=== PATIENT | female | born 1935 | race Caucasian/White ===

== ENCOUNTER → 2016-10-30 | Outpatient (CLI) | payer OTHER, MEDICARE ==
[~2016-10-30] VITALS: Ht 162.6 cm; Wt 71.7 kg
[~2016-10-30] MED LIST: ALPRAZOLAM 0.50.5 M1 PO; AMBIEN 5 MG TABL5 M1 PO; B-121000 MCG PO; BIOTIN300 MCG PO; C-1000 WITH R1000 MG PO; CALCIUM CITRAT1 EA14; COLACE 100 MG100 MG PO; COZAAR 25 MG TA25 M1 PO; COZAAR 50 MG TA50 M2 PO; CRANBERRY200 MG PO; CYMBALTA60 MG PO; DIPHENHIST25 M2 PO; FERRO-TIME325 MG PO; FERROUS PO; FISH OIL 1,0001 EAC5 PO; FISH OIL 1,2001 EAC4 PO; FLONASE16 GM NASAL; FLORASTOR250 MG PO; FOSAMAX 70 MG T70 M1 PO; HAIR VITAMIN OR; HAIR, SKIN & N1 EAC1 PO; HYDROCODONE-AP1 EAC6 PO; IMMODIUM OR; IRON 45 MG PO; IRON OR; IRON325 PO; KLOR-CON 1010 MEQ PO; LEVAQUIN 500 M500 M2 PO; LEVOTHROID100 MC1 PO; LEVOTHYROXIN0.075 MG PO; LOPERAMIDE 2 MG2 M1 PO; LYRICA 50 MG50 MG PO; MACROBID 100 M100 M1 PO; MAGOX 400400 MG PO; MILK OF MA2400 MG/10 PO; MIRALAX17 GM PO; MOBIC15 MG PO; MOBIC7.5 MG PO; MORPHINE 110 MG/1 ML PO; MORPHINE S10 MG/5 M2 PO; MORPHINE SULFAT15 M3 PO; MS CONTIN15 MG PO; NORCO 5-325 TA1 EACH PO; PREDNISONE 10 M10 M1 OR; PRILOSEC20 MG PO; TYLENOL325 MG PO; VITAMIN B-12500 MCG OR; VITAMIN B-6200 M1 OR; VITAMIN B-650 M1 PO; VITAMIN C1000 M1 PO; VITAMIN D1000 UNI1 OR; VITAMIN D2000 UNIT PO; VITAMIN D35000 UNI1 PO; VITAMIN D5000 UNIT PO; VITAMINC500 PO; VITCB500GO OR; ZANAFLEX4 MG PO; ZINC CHELATE100 MG OR; ZINC30 M1 PO; ZOFRAN ODT4 MG PO; ZYRTEC 10 MG TA10 MG PO; ZYRTEC10 M5 PO
--- NOTE | ~2016-10-30 | HPC ---
[facility] [place] [address] PAIN MANAGEMENT CONSULTATION Name: TERESA BIRCH Room #: REG [facility] Joshua.#: [id number] Admission: 10/30/16 Attend Phys: Erick Pichardo MD Discharge: Date of : 35 Report #: [id number] THIS REPORT FOR: //name// CC: Mehnaz Pichardo DATE OF REGISTRATION: 10/30/2016. Followup visit for bilateral osteoarthritis of the knee. HISTORY OF PRESENT ILLNESS: The patient is here today for her knee injections. She has had good response to these injections in the past. She has a small effusion on the left. She complains also of severe pain on the right with weightbearing. She is hopeful that we can inject both knees today. Pain radiates down into the lower leg. She has some small varicosities below the knee bilaterally and some small bruising, these were concerning to her. We discussed the etiology. I did not believe the are serious at this time. She has both Lyrica for pain as well as meloxicam. Meloxicam seems to be more helpful and she would like a prescription, we have discussed side effects of these medications on multiple occasions. We discussed GI, renal and cardiac side effects of nonsteroidal anti-inflammatory drug, meloxicam. I reviewed all of her medications, they are listed on the electronic medical record. PHYSICAL EXAMINATION: GENERAL: She is pleasant but anxious. This is her typical presentation to clinic. VITAL SIGNS: Her blood pressure is 137/84, heart rate 85. BMI is 27. EXTREMITIES: Examination of the knees reveals mild crepitus on the right without effusion. The left knee is swollen and there is some small effusion palpable. She has pain with weightbearing bilaterally. I have discussed the findings below the knee is varicosities superficial. IMPRESSION: Osteoarthritis, bilateral knee. Left is worse in the right and she has effusion there. PLAN: She has responded nicely to injections in the past with pain relief. She would like to do injections in lieu of pursuing a more aggressive approach including surgery. RECOMMENDATIONS: Potential benefits and risks were reviewed with the patient and she is anxious to proceed. I told her that I would perform an joint aspiration some of effusion fluid before injecting the left knee as this has been shown to be more helpful for our patients previously. [address] [address] PAIN MANAGEMENT CONSULTATION Name: REBECCA BIRCHJORIE Emily Room #: REG [facility] June.#: [id number] Admission: 10/30/16 Attend Phys: Erick Pichardo MD Discharge: Date of : 35 Report #: [id number] PROCEDURE IN DETAIL: We began first on the right. Skin was prepped with ChloraPrep and a 25-gauge needle gently advanced into the joint space. AP and lateral views. Using a subpatellar approach showed nice placement of the needle. I did not use Omnipaque for this injection. After negative aspiration, I injected the knee with 5 mL of 0.5% bupivacaine and 40 mg triamcinolone. Needle was removed. Skin was then prepped on the left. We identified joint space with a small 25-gauge needle and then used an 18 gauge needle to gently use a subpatellar approach to advance into the joint space. I was there confirming by aspiration of 1.5 mL of joint fluid aspirate. No further aspiration was obtained. The fluid was not bloody at all, it was straw colored. This was set aside and then I injected 5 mL of 0.5% bupivacaine mixed with 40 mg of triamcinolone into the left knee joint. She tolerated procedures well. There were no complications. She is observed for a short time and discharge from clinic and followup as needed. Prescription for meloxicam was provided 7.5 mg 1 to 2 tablets daily for severe arthritis. Again, nonsteroidal anti-inflammatory drugs side effects discussed. By: [id number] Erick Pichardo MD /nt
[2016-10-30 09:56] VITALS: BP 137/84
== END ==
LOC: PAIN 06:44
DX: M17.0 Bilateral primary osteoarthritis of knee (principal)

== ENCOUNTER → 2017-02-03 | Outpatient (CLI) | payer OTHER, MEDICARE | LOC: SLEEPLAB 15:40 | DX: G47.33 Obstructive sleep apnea (adult) (pediatric) (principal) ==

== ENCOUNTER 2017-03-26 13:43 | Emergency (ER) | payer OTHER, MEDICARE ==
[~2017-03-26] VITALS: Ht 165.1 cm; Wt 65.8 kg
[2017-03-26] MEDS ORDERED: PREDNISONE 20 M20 MG PO (15:41)
== END 2017-03-26 15:41 | disposition home or self-care (01) ==
LOC: ER 13:43
DX: M25.461 Effusion, right knee (principal); M54.31 Sciatica, right side; M19.90 Unspecified osteoarthritis, unspecified site; E89.0 Postprocedural hypothyroidism; Z90.710 Acquired absence of both cervix and uterus; Z98.890 Other specified postprocedural states; Z87.11 Personal history of peptic ulcer disease; Z88.1 Allergy status to other antibiotic agents; Z88.5 Allergy status to narcotic agent; Z88.2 Allergy status to sulfonamides

== ENCOUNTER → 2017-10-26 | Outpatient (CLI) | payer OTHER, MEDICARE ==
[~2017-10-26] MED LIST changes: +CLEOCIN HCL150 MG PO; +CRANBERRY PLUS1 EAC1 PO; +DULOXETINE HCL60 MG PO; +FEOSOL45 M1 PO; +FISH OIL 1,001000 M2 PO; +FLONASE 0.05%50 MCG NASAL; +MAGNESIUM OXID250 MG PO; +PEPCID20 MG PO; +PREDNISONE 20 M20 MG PO; +PROTONIX40 M1 PO; +SYNTHROID75 MCG PO; +TRAMADOL 50 MG50 MG PO; +TYLENOL EXTRA500 MG PO; +TYLENOL PM EX-1 EACH PO; +VITAMIN B125000 MCG SUBLING; +ZINC SULFATE 2220 M1 PO; +ZINC50 M1 PO; +ZUPLENZ4 MG PO
== END ==
LOC: RAD 08:18
DX: R07.9 Chest pain, unspecified (principal); R06.00 Dyspnea, unspecified; I70.0 Atherosclerosis of aorta

== ENCOUNTER 2017-11-23 05:31 | Inpatient (IN) | payer OTHER, MEDICARE ==
[2017-11-16 13:32] LABS: HEMATOCRIT 39.6 % (37.0-47.0); MCH 29.1 pg (26.0-34.0); MCHC 32.8 g/dL (28.0-37.0); MCV 88.9 fL (80.0-100.0); RBC 4.45 mil/uL (4.20-5.00); RDW 16.2 % (10.5-14.5); WBC 4.5 thou/uL (4.0-11.0)
[2017-11-16 13:46] LABS: PROTIME 10.3 Seconds (9.3-11.4)
[2017-11-16 13:50] LABS: ALBUMIN 3.5 g/dL (3.4-5.0); CALCIUM 9.3 mg/dL (8.5-10.1); CREATININE 1.1 mg/dL (0.6-1.0); POTASSIUM 4.7 mmol/L (3.5-5.1)
[2017-11-16 14:13] LABS: URINE BILIRUBIN NEGATIVE (Negative); URINE BLOOD NEGATIVE (Negative); URINE CLARITY CLEAR; URINE COLOR YELLOW; URINE GLUCOSE-RANDOM* NEGATIVE (Negative); URINE KETONES NEGATIVE (Negative); URINE NITRITE-REFLEX NEGATIVE (Negative); URINE PROTEIN (DIPSTICK) NEGATIVE (Negative); URINE UROBILINOGEN 0.2 E.U./dl (0.2-1.0)
[2017-11-16 14:14] LABS: URINE LEUKOCYTES-REFLEX TRACE (Negative)
[~2017-11-23] VITALS: Ht 162.6 cm; Wt 69.4 kg
--- NOTE | ~2017-11-23 | O ---
[facility] [place] [address] OPERATIVE REPORT Name: TERESA BIRCH Room #: 401-I ADM IN M.R.#: [id number] Admission: 11/23/17 Attend Phys: David Ingram MD Discharge: Date of : 35 Report #: [id number] THIS REPORT FOR: //name// CC: Mehnaz Ingram DATE OF SERVICE: 11/23/2017 PREOPERATIVE DIAGNOSIS: Right knee osteoarthritis. POSTOPERATIVE DIAGNOSIS: Right knee osteoarthritis. PROCEDURE: Right total knee arthroplasty with Navio volunteer services assistant navigation. SURGEON: David Ingram MD. DIRECTOR SEMICONDUCTOR: Chinyere Ponce PA-C. INDICATIONS FOR ASSISTANCE: Throughout the case, extensive retraction and manipulation of the knee were required. This was afforded to me by my volunteer services assistant ANESTHESIA: LMA with an adductor canal block. IMPLANTS: Champion and Nephew size 5 Legion cobalt chrome posterior stabilized femur, size 4 tibia, size 9 polyethylene and size 35 patella. TOURNIQUET TIME: 85 minutes. ESTIMATED BLOOD LOSS: 25 mL. COMPLICATIONS: None. SPECIMENS: None. CONDITION UPON LEAVING THE OR: Stable. INDICATION FOR PROCEDURE: The patient is an 82-year-old female with right knee valgus osteoarthritis. She failed conservative treatment for this, and after discussion with her, she elected for right total knee arthroplasty. DESCRIPTION OF PROCEDURE: Risks, benefits, alternatives, complications were discussed in detail with the patient including but not limited to risk of anesthesia, risk of damage to nerves, arteries, blood vessels, risk for infection, bleeding, risk for continued knee pain, need for operation. Informed consent was obtained from the patient. Right knee was appropriately marked in the preoperative holding area. Adductor canal block was placed by Anesthesia. [address] [address] OPERATIVE REPORT Name: TERESA BIRCH Room #: 401-I ADM IN M.R.#: [id number] Admission: 11/23/17 Attend Phys: David Ingram MD Discharge: Date of : 35 Report #: [id number] IV clindamycin was given for preoperative antibiotics. She was brought to the operating room and placed in supine position on operating room table. LMA anesthesia was induced without complication. Tourniquet was placed on the right thigh. Right lower extremity was prepped and draped in normal sterile fashion. Timeout was performed properly identifying the patient and procedure as well as the instrumentation. All in the operating room were in agreement. Right lower extremity was exsanguinated, tourniquet was inflated. Tourniquet time was 85 minutes. Standard midline approach to knee was made with 10 blade through the skin. Dissection was taken down sharply to the fascia, and deep flaps were developed medially and laterally. Fresh 10 blade was used to make a medial parapatellar arthrotomy, and the knee was inspected. There was severe lateral compartment osteoarthritis and moderate patellofemoral arthritis. Anterior horns of meniscus removed sharply. ACL and PCL were removed sharply. At this point, the tibial and femoral tracking pins were placed, and an obvious system was calibrated, hip center was found using the standard technique for the Navio system. The femur and tibia were mapped out and digitized using the system. The femur was sized as a 5 and the tibia as a 4. The drill holes for the femur and tibia were then made using the bur under direction of the Navio system. Distal femoral cut was made, and the drill holes for the five 4-in-1 cutting block were placed and 5, 4-in-1 cutting blocks were placed. Anterior, posterior and chamfer cuts were made. Tibial resection was then made using the resection guide, and tibial resection was removed. Remainder of the meniscus were removed with Bovie cautery. Flexion and extension gaps were checked and found to have good balance in flexion and extension both medially and laterally. The tibia was sized, found to be a size 4. The size 4 tibial trial was placed. This was drilled and punched. Size 5 femoral trial was placed, and the box cut was made, and a post was placed, size 9 polyethylene was placed. Knee was taken through range of motion, found to be stable, found to have good balance in flexion and extension both medially and laterally. 9 mm was taken off the posterior surface of the patella, and a size 35 patellar trial button was placed. Knee was taken through range of motion, found to be stable, found to have good patellar tracking. Trial components were removed. Bony ends were thoroughly irrigated with normal saline. A final size 4 tibia, size 5 Legion cobalt chrome posterior stabilized femur and a size 35 patella were cemented in place using standard cementation techniques. While the cement cured, a periarticular injection consisting of morphine, ropivacaine, epinephrine, Toradol was placed around the knee joint. After the cement cured, tourniquet was deflated. Hemostasis was obtained with Bovie cautery. A gram of vancomycin was placed deep into the joint. A final size 9 polyethylene was placed. Fascia was closed with 0 Vicryl, skin was closed with 2-0 Vicryl and 3-0 Monocryl. Dermabond and JORDEN dressing were applied. The patient tolerated this procedure well and went to recovery room under care of Anesthesia postoperatively. <ELECTRONICALLY SIGNED> By: David Ingram MD 11/25/17 1612 1539 1637 David Ingram MD /nt
[2017-11-23 13:55] VITALS: BP 123/87
[2017-11-23 20:27] VITALS: BP 145/71
[2017-11-24] VITALS: BP 117/68
[2017-11-24 04:00] VITALS: BP 103/55
[2017-11-24 06:09] LABS: HEMATOCRIT 32.9 % (37.0-47.0); HEMOGLOBIN 10.7 gm/dL (12.0-15.0); MCH 29.2 pg (26.0-34.0); MCHC 32.5 g/dL (28.0-37.0); MCV 89.8 fL (80.0-100.0); RBC 3.67 mil/uL (4.20-5.00); RDW 15.9 % (10.5-14.5); WBC 9.6 thou/uL (4.0-11.0)
[2017-11-24 08:31] VITALS: BP 109/70
[2017-11-24 16:00] VITALS: BP 133/66
[2017-11-24 20:05] VITALS: BP 112/60
[2017-11-25 05:19] VITALS: BP 142/75
[2017-11-25 05:55] LABS: HEMATOCRIT 32.4 % (37.0-47.0); HEMOGLOBIN 10.8 gm/dL (12.0-15.0); MCH 29.6 pg (26.0-34.0); MCHC 33.1 g/dL (28.0-37.0); MCV 89.4 fL (80.0-100.0); RBC 3.63 mil/uL (4.20-5.00); RDW 16.1 % (10.5-14.5); WBC 5.5 thou/uL (4.0-11.0)
[2017-11-25 07:00] VITALS: BP 139/77
[2017-11-25 07:05] VITALS: BP 139/77
[2017-11-25 12:00] VITALS: BP 138/7; BP 138/77
[2017-11-25 15:30] VITALS: BP 108/58
[2017-11-25 20:00] VITALS: BP 95/51
[2017-11-26 04:00] VITALS: BP 123/59
[2017-11-26 05:40] LABS: HEMATOCRIT 31.5 % (37.0-47.0); HEMOGLOBIN 10.6 gm/dL (12.0-15.0); MCH 29.7 pg (26.0-34.0); MCHC 33.6 g/dL (28.0-37.0); MCV 88.5 fL (80.0-100.0); RBC 3.56 mil/uL (4.20-5.00); RDW 15.9 % (10.5-14.5); WBC 6.5 thou/uL (4.0-11.0)
[2017-11-26 07:20] VITALS: BP 142/20
[2017-11-26 08:05] VITALS: BP 126/64
[2017-11-26 16:05] VITALS: BP 90/57
[2017-11-26 17:15] VITALS: BP 98/50
[2017-11-26 21:23] VITALS: BP 116/53
[2017-11-27 04:00] VITALS: BP 131/53
[2017-11-27 05:53] LABS: HEMATOCRIT 31.6 % (37.0-47.0); HEMOGLOBIN 10.5 gm/dL (12.0-15.0); MCH 29.4 pg (26.0-34.0); MCHC 33.1 g/dL (28.0-37.0); MCV 88.9 fL (80.0-100.0); PLATELET COUNT 178 thou/uL (150-400); RBC 3.55 mil/uL (4.20-5.00); WBC 5.6 thou/uL (4.0-11.0)
[2017-11-27 06:08] LABS: CALCIUM 8.4 mg/dL (8.5-10.1); POTASSIUM 4.2 mmol/L (3.5-5.1)
[2017-11-27 06:56] LABS: ABSOLUTE NEUTROPHILS 3.6 thou/uL (1.4-8.2); METAMYELOCYTES 1 %
[2017-11-27 07:57] VITALS: BP 148/74
== END 2017-11-27 14:10 | DRG 470 ==
LOC: TBA 05:31 → 4N 05:31 → PRE 05:38 → 4N 18:37
PROVIDERS: Hospitalist; Orthopaedic Surgery
PROC: 0SRC0J9 Replacement of Right Knee Joint with Synthetic Substitute, Cemented, Open Approach (ICD-10-PCS; principal; 2017-11-23)
PROC: 5A09357 Assistance with Respiratory Ventilation, Less than 24 Consecutive Hours, Continuous Positive Airway Pressure (ICD-10-PCS; 2017-11-24)
PROC: 5A09357 Assistance with Respiratory Ventilation, Less than 24 Consecutive Hours, Continuous Positive Airway Pressure (ICD-10-PCS; 2017-11-26)
DX: M17.11 Unilateral primary osteoarthritis, right knee (principal); E89.0 Postprocedural hypothyroidism; Z96.641 Presence of right artificial hip joint; I10 Essential (primary) hypertension; F32.9 Major depressive disorder, single episode, unspecified; G89.29 Other chronic pain; M54.9 Dorsalgia, unspecified; K59.00 Constipation, unspecified; G47.30 Sleep apnea, unspecified; Z98.42 Cataract extraction status, left eye; Z98.41 Cataract extraction status, right eye; Z90.710 Acquired absence of both cervix and uterus; Z87.11 Personal history of peptic ulcer disease; Z79.51 Long term (current) use of inhaled steroids; Z79.899 Other long term (current) drug therapy; Z88.1 Allergy status to other antibiotic agents; Z88.0 Allergy status to penicillin; Z88.2 Allergy status to sulfonamides; Z88.8 Allergy status to other drugs, medicaments and biological substances
CPT/HCPCS: 10790; 50010; 50415; 50954; 51130; 51225; 51771; 53000; 53078; 53364; 54118; 56527; 56528; 57095; 65060

== ENCOUNTER → 2018-11-24 | Outpatient (CLI) | payer OTHER, MEDICARE | LOC: ULTRA 07:58 | DX: N28.1 Cyst of kidney, acquired (principal); I72.2 Aneurysm of renal artery; N13.30 Unspecified hydronephrosis ==

== ENCOUNTER → 2018-12-01 | Outpatient (CLI) | payer OTHER, MEDICARE ==
[~2018-12-01] MED LIST changes: +FEROSUL325 M1 PO; +PROBIOTIC1 EAC1 PO
== END ==
LOC: NUC 09:17
DX: N13.39 Other hydronephrosis (principal)

== ENCOUNTER 2018-12-22 05:34 | Inpatient (IN) | payer OTHER, MEDICARE ==
[2018-12-08 12:10] LABS: HEMATOCRIT 38.5 % (37.0-47.0); HEMOGLOBIN 12.7 gm/dL (12.0-15.0); MCH 29.7 pg (26.0-34.0); MCV 89.9 fL (80.0-100.0); RBC 4.28 mil/uL (4.20-5.00); RDW 14.9 % (10.5-14.5); WBC 4.1 thou/uL (4.0-11.0)
[2018-12-08 12:27] LABS: ALBUMIN 3.6 g/dL (3.4-5.0); POTASSIUM 3.9 mmol/L (3.5-5.1)
[2018-12-08 12:34] LABS: URINE BILIRUBIN NEGATIVE (Negative); URINE BLOOD NEGATIVE (Negative); URINE CLARITY CLEAR; URINE COLOR YELLOW; URINE GLUCOSE-RANDOM* NEGATIVE (Negative); URINE KETONES TRACE (Negative); URINE LEUKOCYTES-REFLEX NEGATIVE (Negative); URINE NITRITE-REFLEX NEGATIVE (Negative); URINE PROTEIN (DIPSTICK) TRACE (Negative); URINE SPECIFIC GRAVITY 1.025 (1.005-1.035); URINE UROBILINOGEN 0.2 E.U./dl (0.2-1.0)
--- NOTE | 2018-12-09 07:08 | EKG ---
[address] [place] [address] ELECTROCARDIOGRAM REPORT Name: TERESA BIRCH Room #: PRE IN [facility].#: [id number] ������������������ Admission: ������������������ Attend Phys: David Ingram MD Discharge: ������������������ Date of : 35 Report #: [id number] ����������������������������������������������������������������� [id number] THIS REPORT FOR: //name// [facility] Test Date: 2018-12-08 Test Time: 12:04:10 Pat Name: TERESA BIRCH Department: Room: Gender: F Property Field Inspector: georgie : 1935 Requested By: David Ingram Order Number: [id number] MD: Dangelo He Measurements Intervals [place] Rate: 68 P: 13 NH: 157 QRS: -35 QRSD: 97 T: 12 QT: 420 QTc: 447 Interpretive Statements Sinus rhythm Left axis deviation RSR' in V1 or V2, right VCD Compared to ECG 05/27/2017 12:20:26 no significant change was found Electronically Signed On 12-09-2018 7:08:32 CDT by Dangelo He [email or web address] ��������������������������������������������� <ELECTRONICALLY SIGNED> ���������������������������������������� By: Dangelo He MD, [facility] ��������������������������������������������� 12/09/18 0708 1204 120 Dangelo He MD, [facility] /EPI
[~2018-12-22] VITALS: Ht 162.6 cm; Wt 65.4 kg
[2018-12-22] VITALS (7 sets, daily range): BP systolic 101–152; BP diastolic 53–76
--- NOTE | 2018-12-22 23:54 | NUR ---
Assumed pt care at 1900. Admitted s/p LTKR. A/OX4,anxious at times, oriented to the unit/room and call light system.C/o pain w/movement and medicated per EMAR with relief reported,ice pack provided as well.VSS. Up with AX1 to BSC.JORDEN dsg in place left knee C/D/I.Pt has requested the vital sign machine be turned off at this time stating the beeping keeps her awake;informed pt of post op orders but she requested to skip checking now until after 4 hrs. Pt has a friend by the bedside for the night. SCD's/tedhose in place. Pt has IVF infusing without problems. Call light/personal items placed within reach,will continue to monitor pt.
[2018-12-23 03:07] VITALS: BP 130/74
[2018-12-23 06:42] LABS: HEMATOCRIT 30.5 % (37.0-47.0); HEMOGLOBIN 9.8 gm/dL (12.0-15.0); MCH 29.5 pg (26.0-34.0); MCHC 32.3 g/dL (28.0-37.0); MCV 91.4 fL (80.0-100.0); RBC 3.33 mil/uL (4.20-5.00); RDW 15.5 % (10.5-14.5); WBC 9.1 thou/uL (4.0-11.0)
[2018-12-23 07:30] VITALS: BP 106/68
--- NOTE | 2018-12-23 10:49 | NUR ---
INITIAL ASSESSMENT: Pt evaluated for d/c planning needs. Reviewed chart and spoke with nurse and pt. Pt is alert and oriented. Pt lives alone in house and was independent with ADL's prior to admission to the hospital. Pt has been for 8 years. Pt has walker and cane at home. Pt had right knee replaced last year and went to [facility]. Pt plans on going to [facility] for SNF on d/c from hospital. Asked licensed esthetician to fax referral. WIll remain available to assist as needed.
--- NOTE | 2018-12-23 10:58 | NUR ---
PATIENT CARE WAS ASSUMED AT 0715.PATIENT IS ALERT AND ORIENTED X4.PATIENT IS RESTING IN BED.PAIN MEDS WILL BE GIVEN WITH MORNING MEDS BEFORE PATIENT WORKS WITH PHYSICAL THERAPY.PATIENT HAS PAIN LEVEL 2/10 AT THIS TIME.PATIENT HAS ICE PACK ON KNEE.SMALL AMOUNT OF BLEEDING ON KNEE, PICK DRESSING IS INTACT. IV IS INTACT AND INFUSING FLUIDS.PATIENT IS GETTING UP WITH X1 ASSIST WITH WALKER.PT HAS CALL LIGHT, PHONE, AND PERSONAL BELONGINGS WITHIN REACH.
--- NOTE | 2018-12-23 11:00 | O ---
[facility] [place] [address] OPERATIVE REPORT Name: TERESA BIRCH Room #: 220-P ADM IN M.R.#: [id number] Admission: 12/22/18 ������������������ Attend Phys: David Ingram MD Discharge: ������������������ Date of : 35 Report #: [id number] THIS REPORT FOR: //name// CC: Mehnaz Ingram DATE OF SERVICE: 12/22/2018 PREOPERATIVE DIAGNOSIS: Left knee osteoarthritis. POSTOPERATIVE DIAGNOSIS: Left knee osteoarthritis. PROCEDURE: Left total knee arthroplasty using Navio robotic assistance. SURGEON: David Ingram MD SUPERVISOR COMPOUNDING AND FINISHING: Chinyere Ponce PA-C INDICATIONS FOR SUPERVISOR COMPOUNDING AND FINISHING: Throughout the case, extensive retraction and manipulation of the knee was required. This was afforded to me by my butcher's assistant. ANESTHESIA: LMA with an adductor canal block. IMPLANTS: Champion and Nephew size 6 narrow Legion cobalt chrome femur, a size 4 tibia, a size 9 polyethylene and a size 32 patella. TOURNIQUET TIME: 49 minutes. ESTIMATED BLOOD LOSS: 25 mL. COMPLICATIONS: None. SPECIMENS: None. CONDITION UPON LEAVING THE OPERATING ROOM: Stable. INDICATIONS FOR PROCEDURE: The patient is an 83-year-old female with left knee osteoarthritis. She had failed conservative measures for this and after discussion with her, she elected for left total knee arthroplasty. DESCRIPTION OF PROCEDURE: Risks, benefits, alternatives, complications were discussed in detail with the patient including but not limited to risk of anesthesia, risk of damage to nerves, arteries and blood vessels, risk for infection and bleeding, risk for continued knee pain and need for reoperation. Informed consent was obtained from the patient. Left knee was appropriately marked in the preoperative holding area. IV clindamycin was given for [facility] [address] [place] [address] OPERATIVE REPORT Name: TERESA BIRCH Room #: 220-P ADM IN M.R.#: [id number] Admission: 12/22/18 ������������������ Attend Phys: David Ingram MD Discharge: ������������������ Date of : 35 Report #: [id number] preoperative antibiotics. Adductor canal block was placed by Anesthesia. She was brought to the operating room and placed in supine position on the operating room table. LMA anesthesia was induced without complication. Tourniquet was placed on the left thigh. Left lower extremity was prepped and draped in normal sterile fashion. Timeout was performed properly identifying the patient and procedure as well as the instrumentation. All in the operating room were in agreement. Left lower extremity was exsanguinated, tourniquet was inflated. Tourniquet time was 49 minutes. Standard midline approach to the knee was made with a10 blade through the skin. Dissection was taken down sharply to the fascia and deep flaps were developed medially and laterally. A fresh 10 blade was used to make a medial parapatellar arthrotomy and the knee was inspected. There was severe tricompartment osteoarthritis. ACL and PCL were removed sharply. Reference pins were placed in the femur and the tibia and the knee was digitally mapped using the Navio robotic system. We sized a size 6 narrow femur, a size 4 tibia with a 9 polyethylene. After acceptance of the intraoperative plan, the distal femoral cut was made using the Navio bur. The 4-in-1 size 6 cutting block was placed. Anterior, posterior and chamfer cuts were made on the femur. After this, the tibial resection guide was pinned in place using the [employer] robotic system for placement and tibial resection was made. Flexion and extension gaps were checked and found to have good balance in flexion and extension both medially and laterally. Tibia was sized, found to be a size 4. A size 4 tibial trial was placed, pinned and punched. A size 6 femoral trial was placed and the box cut was made. This was then trialed with a size 9 polyethylene. Knee was taken through range of motion, found to have 1-2 mm of medial and lateral laxity throughout range of motion of the knee with full extension. A 9 mm was taken off the posterior surface of the patella and a size 32 patellar button was placed. Knee was taken through range of motion, found to be stable, found to have good patellar tracking. Trial components were removed. Bony ends were thoroughly irrigated with normal saline. A final size 4 tibia, a size 6 narrow cobalt chrome Legion posterior stabilized femur and a size 32 patella were cemented in place using standard cementation techniques. While the cement cured, a periarticular injection consisting of morphine, ropivacaine, epinephrine, Toradol was placed in the knee joint capsule. After the cement cured, tourniquet was deflated. Hemostasis was obtained with Bovie cautery. A final size 9 polyethylene was placed. A gram of vancomycin was placed deep in the joint. The fascia was closed with 0 Vicryl, skin was closed with 2-0 Vicryl and 3-0 Monocryl. Dermabond and a JORDEN dressing was applied. The patient tolerated this procedure well and went to the recovery room under care of anesthesia postoperatively. ��������������������������������������������� <ELECTRONICALLY SIGNED> ���������������������������������������� By: David Ingram MD ��������������������������������������������� 12/23/18 1100 1423 1440 David Ingram MD /nt
--- NOTE | 2018-12-23 12:08 | NUR ---
DISCHARGE PLANNING. PATIENT IS POST LEFT TKA. ANTICIPATED DISCHARGE IS PLANNED FOR THURSDAY. POST ACUTE CARE RECOMMENDED AT DISCHARGE. REFERRAL FAXED TO [facility], PATIENT REQUEST. PATIENT HAS BEEN TO [facility] IN THE PAST AND WISHES TO RETURN FOR POST ACUTE CARE ONCE MEDICALLY READY. CALL PLACED TO MICHAEL, [facility] DIRECTOR OF CLOUD SERVICES, TO NOTIFY OF PATIENT REFERRAL AND PTS DISCHARGE NEEDS. FOLLOWING TO ASSIST WITH DISCHARGE. [facility] CONTACT NUMBER [phone] FAX MICHAEL, [facility] DIRECTOR OF CLOUD SERVICES CONTACT NUMBER [phone]
[2018-12-23 15:49] VITALS: BP 97/45
[2018-12-23 19:10] VITALS: BP 109/52
--- NOTE | 2018-12-24 02:15 | NUR ---
ASSUMED PT CARE 1899. PT ALERT AND ORIENTED. REASSESSMENT COMPLETE. VSS. PT DENIES N/V AT THIS TIME. PT REPORTS SEVERE PAIN. PAIN UNRELEIVED WITH ORAL MEDICATION, PROVIDER CONTACTED, ORDERS RECEIVED FOR IV PAIN MEDICATION, SEE EMAR. IV DRESSING C/D/I, NO SIGNS OF INFILTRATION. SWELLING TO RLE, ICE PACK APPLIED. PT CALL LIGHT AND PERSONAL BELONINGS WITHIN REACH. WILL CONTINUE POC UNTIL EOS.
[2018-12-24 03:10] VITALS: BP 124/55
[2018-12-24 05:48] LABS: HEMOGLOBIN 9.5 gm/dL (12.0-15.0); MCH 29.8 pg (26.0-34.0); MCHC 32.9 g/dL (28.0-37.0); MCV 90.7 fL (80.0-100.0); RBC 3.2 mil/uL (4.20-5.00); RDW 15.5 % (10.5-14.5); WBC 6.8 thou/uL (4.0-11.0)
[2018-12-24 09:15] VITALS: BP 131/57
[2018-12-24] MEDS ORDERED: HYDROCODON-ACE1 EAC7 PO (13:17)
[2018-12-24] MEDS ORDERED: ASPIR 8181 MG PO (13:18)
--- NOTE | 2018-12-24 16:04 | NUR ---
PT TO DC TOMORROW TO [facility] FAXED DC ORDERS/SUMMARY TO AND CALL REPORT TO [phone]. NOTIFIED MICHAEL IN ADM TO CALL UNIT TO SET UP TRANSPORT WC VAN WITH 2L 02.
[2018-12-24 17:44] VITALS: BP 118/55
[2018-12-24 20:09] VITALS: BP 137/56
--- NOTE | 2018-12-25 03:28 | NUR ---
ASSUMED PT CARE 1899. PT ALERT AND ORIENTED. REASSESSMENT COMPLETE. VSS. IV DRESSING C/D/I, NO SIGNS OF INFILTRATION. PT DENIES N/V. REPORTS PAIN, SEE EMAR. PT CALL LIGHT AND PERSONAL BELONINGS WITHIN REACH. WILL CONTINUE POC UNTIL EOS.
[2018-12-25 04:13] VITALS: BP 137/68
[2018-12-25 06:54] LABS: HEMATOCRIT 28.9 % (37.0-47.0); HEMOGLOBIN 9.6 gm/dL (12.0-15.0); MCH 29.9 pg (26.0-34.0); MCHC 33.1 g/dL (28.0-37.0); MCV 90.4 fL (80.0-100.0); RBC 3.19 mil/uL (4.20-5.00); RDW 15.2 % (10.5-14.5); WBC 6.7 thou/uL (4.0-11.0)
[2018-12-25 07:34] VITALS: BP 123/72
[2018-12-25] MEDS ORDERED: MS CONTIN15 MG PO (13:12)
[2018-12-25] MEDS ORDERED: MS CONTIN15 MG (13:14)
--- NOTE | 2018-12-25 13:45 | NUR ---
PT ASSESSED AT START OF SHIFT. LT LEG SWELLING W/ DRIED BLOOD ON DISTAL LT LEG INCISION AREA. JORDEN DSNG INTACT. PT HAVING MUCH PAIN THIS AM AND MEDS ADJUSTED BETTER PAIN CONTROL AND PT SMILING FEELING MUCH BETTER. ASSISTED TO DRESS FOR TRANSFER TO [facility]. ALL BELONGINGS SENT W/ PT.
== END 2018-12-25 13:41 | DRG 470 ==
LOC: TBA 05:34 → SICU 05:34 → PRE 05:42 → SICU 15:48 → 4E 12-23 14:31
PROVIDERS: ADMIT Orthopaedic Surgery
PROC: 0SRD0J9 Replacement of Left Knee Joint with Synthetic Substitute, Cemented, Open Approach (ICD-10-PCS; principal; 2018-12-22)
PROC: 8E0Y0CZ Robotic Assisted Procedure of Lower Extremity, Open Approach (ICD-10-PCS; principal; 2018-12-22)
DX: M17.12 Unilateral primary osteoarthritis, left knee (principal); E89.0 Postprocedural hypothyroidism; Z96.651 Presence of right artificial knee joint; Z96.641 Presence of right artificial hip joint; Z90.710 Acquired absence of both cervix and uterus; Z79.899 Other long term (current) drug therapy; Z88.1 Allergy status to other antibiotic agents; Z88.0 Allergy status to penicillin; Z88.2 Allergy status to sulfonamides; Z88.8 Allergy status to other drugs, medicaments and biological substances
CPT/HCPCS: 10084; 15002; 50010; 50101; 50415; 50954; 51130; 51225; 53000; 53078; 53364; 54118; 56527; 56528; 57095; 57103; 57110; 57127; 62110; 62900; 64042; 70005

== ENCOUNTER → 2019-10-18 | Outpatient (CLI) | payer OTHER, MEDICARE ==
[~2019-10-18] MED LIST changes: +ASPIR 8181 MG PO; +HYDROCODON-ACE1 EAC7 PO; +MS CONTIN15 MG
== END ==
LOC: MRI 13:22
DX: M51.16 Intervertebral disc disorders with radiculopathy, lumbar region (principal); M48.061 Spinal stenosis, lumbar region without neurogenic claudication; M43.16 Spondylolisthesis, lumbar region

== ENCOUNTER 2019-11-19 11:34 | Emergency (ER) | payer OTHER, MEDICARE ==
[~2019-11-19] VITALS: Ht 162.6 cm; Wt 65.8 kg
[2019-11-19 12:17] LABS: HEMATOCRIT 37.1 % (37.0-47.0); HEMOGLOBIN 12.5 gm/dL (12.0-15.0); MCH 29.3 pg (26.0-34.0); MCHC 33.7 g/dL (28.0-37.0); MCV 86.9 fL (80.0-100.0); PLATELET COUNT 243 thou/uL (150-400); RBC 4.27 mil/uL (4.20-5.00); RDW 16.1 % (10.5-14.5); WBC 4.2 thou/uL (4.0-11.0)
[2019-11-19 12:18] LABS: URINE BILIRUBIN NEGATIVE (Negative); URINE BLOOD NEGATIVE (Negative); URINE CLARITY CLEAR; URINE COLOR YELLOW; URINE GLUCOSE-RANDOM* NEGATIVE (Negative); URINE KETONES NEGATIVE (Negative); URINE LEUKOCYTES-REFLEX NEGATIVE (Negative); URINE NITRITE-REFLEX NEGATIVE (Negative); URINE PROTEIN (DIPSTICK) NEGATIVE (Negative); URINE SPECIFIC GRAVITY 1.015 (1.005-1.035); URINE UROBILINOGEN 0.2 E.U./dl (0.2-1.0)
[2019-11-19 12:23] LABS: ANION GAP 9 mmol/L (7-16); BUN 18 mg/dL (7-18); CALCIUM 8.8 mg/dL (8.5-10.1); CHLORIDE 102 mmol/L (98-107); CO2 25 mmol/L (21-32); CREATININE 1.2 mg/dL (0.6-1.0); GLUCOSE 114 mg/dL (74-106); POTASSIUM 4.9 mmol/L (3.5-5.1); SODIUM 136 mmol/L (136-145)
[2019-11-19 12:33] LABS: ALBUMIN 3.2 g/dL (3.4-5.0); SGOT 17 U/L (15-37); SGPT 23 U/L (30-65); TOTAL BILIRUBIN 0.5 mg/dL (<0.1-1.0); TOTAL PROTEIN 6.4 g/dL (6.4-8.2); TROPONIN-I <0.06 ng/mL (<0.06)
[2019-11-19 13:04] LABS: ABSOLUTE NEUTROPHILS 3.1 thou/uL (1.4-8.2); ANISOCYTOSIS 1+
[2019-11-19 14:50] VITALS: BP 166/65
--- NOTE | 2019-11-20 13:05 | EKG ---
[facility] [place] [address] ELECTROCARDIOGRAM REPORT Name: TERESA BIRCH Room #: DEP [facility].#: [id number] Admission: 11/19/19 Attend Phys: Discharge: 11/19/19 Date of : 35 Report #: [id number] THIS REPORT FOR: cc: Mehnaz Vo MD, Carrie W. MD Couchonnal, Luis F. MD ~ THIS REPORT FOR: //name// [facility] Test Date: 2019-11-19 Test Time: 11:41:08 Pat Name: TERESA BIRCH Department: Room: Gender: F Chip Machine Operator: JAIME : 1935 Requested By: Azucena Sam Order Number: [id number] MD: Jose Ramon Ruiz Measurements Intervals [place] Rate: 73 P: 38 WV: 168 QRS: -45 QRSD: 92 T: 0 QT: 376 QTc: 415 Interpretive Statements Sinus rhythm LAD, consider left anterior fascicular block Consider right ventricular hypertrophy Borderline T abnormalities, anterior leads Compared to ECG 12/08/2018 12:04:10 T-wave abnormality now present Left-axis deviation no longer present Electronically Signed On 11-20-2019 13:04:20 CDT by Jose Ramon Ruiz [email or web address] <ELECTRONICALLY SIGNED> By: Jose Ramon Ruiz MD 11/20/19 1304 1141 1141 Jose Ramon Ruiz MD /EPI
== END 2019-11-19 14:50 | disposition home or self-care (01) ==
LOC: ER 11:34
PROVIDERS: Physician Assistant
DX: S93.401A Sprain of unspecified ligament of right ankle, initial encounter (principal); E03.9 Hypothyroidism, unspecified; M25.561 Pain in right knee; I95.1 Orthostatic hypotension; R42 Dizziness and giddiness; M19.90 Unspecified osteoarthritis, unspecified site; I10 Essential (primary) hypertension; Z96.651 Presence of right artificial knee joint; Z79.899 Other long term (current) drug therapy; Z88.1 Allergy status to other antibiotic agents; Z88.0 Allergy status to penicillin; Z88.2 Allergy status to sulfonamides; Z88.8 Allergy status to other drugs, medicaments and biological substances; Z88.6 Allergy status to analgesic agent; W18.39XA Other fall on same level, initial encounter; Y93.89 Activity, other specified; Y92.89 Other specified places as the place of occurrence of the external cause; Y99.8 Other external cause status

== ENCOUNTER 2019-12-09 21:37 | Emergency (ER) | payer OTHER, MEDICARE ==
[~2019-12-09] VITALS: Ht 162.6 cm; Wt 65.8 kg
[2019-12-09] MEDS ORDERED: PREGABALIN50 MG PO (21:48)
[2019-12-09 21:52] LABS: HEMATOCRIT 37.7 % (37.0-47.0); HEMOGLOBIN 12.3 gm/dL (12.0-15.0); MCH 27.7 pg (26.0-34.0); MCHC 32.5 g/dL (28.0-37.0); MCV 85.3 fL (80.0-100.0); RBC 4.42 mil/uL (4.20-5.00); RDW 15.6 % (10.5-14.5); WBC 6.7 thou/uL (4.0-11.0)
[2019-12-09 22:09] LABS: ANION GAP 11 mmol/L (7-16); BUN 24 mg/dL (7-18); CALCIUM 9.2 mg/dL (8.5-10.1); CHLORIDE 102 mmol/L (98-107); CO2 23 mmol/L (21-32); GLUCOSE 146 mg/dL (74-106); POTASSIUM 3.8 mmol/L (3.5-5.1); SODIUM 136 mmol/L (136-145); TROPONIN-I <0.06 ng/mL (<0.06)
[2019-12-09 23:15] LABS: URINE BILIRUBIN NEGATIVE (Negative); URINE BLOOD NEGATIVE (Negative); URINE CLARITY CLEAR; URINE COLOR YELLOW; URINE GLUCOSE-RANDOM* NEGATIVE (Negative); URINE KETONES NEGATIVE (Negative); URINE NITRITE-REFLEX NEGATIVE (Negative); URINE PROTEIN (DIPSTICK) NEGATIVE (Negative); URINE UROBILINOGEN 0.2 E.U./dl (0.2-1.0)
[2019-12-09 23:18] LABS: URINE LEUKOCYTES-REFLEX 1+ (Negative)
[2019-12-09 23:25] LABS: BACTERIA-REFLEX 1-9 Few /HPF (None Seen); CASTS None Seen /LPF (None Seen); CRYSTALS None Seen /LPF (None Seen); SQUAMOUS 0-3 Few /LPF (0-3); URINE RBC None Seen /HPF (0-2); URINE WBC-REFLEX 0-5 Rare /HPF (0-5)
[2019-12-09] MEDS ORDERED: COZAAR 25 MG TA25 M1 PO (23:46)
[2019-12-09 23:58] VITALS: BP 173/87
[2019-12-10] MEDS ORDERED: COZAAR 25 MG TA25 M1 PO (00:19)
--- NOTE | 2019-12-12 08:55 | EKG ---
[facility] [place] [address] ELECTROCARDIOGRAM REPORT Name: TERESA BIRCH Room #: DEP [facility].#: [id number] Admission: 12/09/19 Attend Phys: Discharge: 12/10/19 Date of : 35 Report #: [id number] THIS REPORT FOR: cc: Mehnaz Vo MD, Carrie W. MD Couchonnal, Luis F. MD ~ THIS REPORT FOR: //name// [facility] ED Test Date: 2019-12-09 Test Time: 21:51:03 Pat Name: TERESA BIRCH Department: Room: Gender: F Director Integrated: [place] [address] : 1935 Requested By: Durga Pro Order Number: [id number] MD: Jose Ramon Ruiz Measurements Intervals [place] Rate: 79 P: 49 SD: 153 QRS: -53 QRSD: 96 T: 19 QT: 378 QTc: 434 Interpretive Statements Sinus rhythm Atrial premature complex LAD, consider left anterior fascicular block Anteroseptal infarct, age indeterminate Compared to ECG 11/19/2019 11:41:08 Atrial premature complex(es) now present Myocardial infarct finding now present T-wave abnormality no longer present Electronically Signed On 12-12-2019 8:53:32 CDT by Jose Ramon Ruiz [email or web address] <ELECTRONICALLY SIGNED> By: Jose Ramon Ruiz MD 12/12/19 0853 50 50 Jose Ramon Ruiz MD /EPI
== END 2019-12-10 00:20 | disposition home or self-care (01) ==
LOC: ER 21:37
PROVIDERS: Emergency Medicine
DX: R42 Dizziness and giddiness (principal); R11.0 Nausea; R35.0 Frequency of micturition; R30.9 Painful micturition, unspecified; I10 Essential (primary) hypertension; M19.90 Unspecified osteoarthritis, unspecified site; Z79.899 Other long term (current) drug therapy; Z88.1 Allergy status to other antibiotic agents; Z88.0 Allergy status to penicillin; Z88.8 Allergy status to other drugs, medicaments and biological substances; Z90.710 Acquired absence of both cervix and uterus; Z98.890 Other specified postprocedural states

== ENCOUNTER → 2020-05-03 | Outpatient (CLI) | payer OTHER, MEDICARE ==
[~2020-05-03] MED LIST changes: +PREGABALIN50 MG PO
== END ==
LOC: NUC 10:23
PROVIDERS: ATTEND Internal Medicine
DX: M81.0 Age-related osteoporosis without current pathological fracture (principal); N95.9 Unspecified menopausal and perimenopausal disorder; E28.39 Other primary ovarian failure

== ENCOUNTER 2020-12-10 09:15 | Emergency (ER) | payer OTHER, MEDICARE ==
[~2020-12-10] VITALS: Ht 162.6 cm; Wt 68.0 kg
[2020-12-10] MEDS ORDERED: NORCO5 PO (10:35)
[2020-12-10] MEDS ORDERED: FLEXERIL PO (10:35)
[2020-12-10] MEDS ORDERED: PREDNISONE50 MG PO (10:35)
[2020-12-10 13:03] LABS: URINE BILIRUBIN NEGATIVE (Negative); URINE BLOOD TRACE (Negative); URINE CLARITY CLEAR; URINE COLOR YELLOW; URINE GLUCOSE-RANDOM* NEGATIVE (Negative); URINE KETONES NEGATIVE (Negative); URINE LEUKOCYTES-REFLEX NEGATIVE (Negative); URINE PROTEIN (DIPSTICK) NEGATIVE (Negative); URINE SPECIFIC GRAVITY 1.015 (1.005-1.035); URINE UROBILINOGEN 0.2 E.U./dl (0.2-1.0)
[2020-12-10 13:04] LABS: URINE NITRITE-REFLEX POSITIVE (Negative)
[2020-12-10 13:16] LABS: BACTERIA-REFLEX >30 Many /HPF (None Seen); CASTS None Seen /LPF (None Seen); CRYSTALS None Seen /LPF (None Seen); SQUAMOUS 0-3 Few /LPF (0-3); URINE RBC None Seen /HPF (NONE SEEN); URINE WBC-REFLEX None Seen /HPF (0-5)
[2020-12-10 13:36] VITALS: BP 166/75
[2020-12-12] MEDS ORDERED: MACROBID 100 M100 M1 PO (08:18)
== END 2020-12-10 13:48 | disposition home or self-care (01) ==
LOC: ER 09:15
PROVIDERS: Emergency Medicine
DX: N39.0 Urinary tract infection, site not specified (principal); M54.42 Lumbago with sciatica, left side; I10 Essential (primary) hypertension; Z90.710 Acquired absence of both cervix and uterus; Z90.89 Acquired absence of other organs; Z79.899 Other long term (current) drug therapy; Z88.0 Allergy status to penicillin; Z88.1 Allergy status to other antibiotic agents; Z88.2 Allergy status to sulfonamides; Z88.8 Allergy status to other drugs, medicaments and biological substances

== ENCOUNTER → 2021-01-03 | Outpatient (CLI) | payer OTHER, MEDICARE ==
[~2021-01-03] MED LIST changes: +FLEXERIL PO; +MONUROL3 GM PER TUBE; +NORCO5 PO; +PREDNISONE50 MG PO
== END ==
LOC: MRI 09:32
PROVIDERS: ATTEND Internal Medicine
DX: M47.27 Other spondylosis with radiculopathy, lumbosacral region (principal); M47.26 Other spondylosis with radiculopathy, lumbar region; M43.17 Spondylolisthesis, lumbosacral region; K80.20 Calculus of gallbladder without cholecystitis without obstruction; M48.061 Spinal stenosis, lumbar region without neurogenic claudication; R29.898 Other symptoms and signs involving the musculoskeletal system

== ENCOUNTER 2021-01-09 17:30 | Emergency (ER) | payer OTHER, MEDICARE ==
[~2021-01-09] VITALS: Ht 162.6 cm; Wt 68.0 kg
[~2021-01-09 17:30] MED LIST changes: -MONUROL3 GM PER TUBE
[2021-01-09] MEDS ORDERED: MACROBID 100 M100 M1 PO (20:00)
[2021-01-09] MEDS ORDERED: MONUROL3 GM PER TUBE (20:00)
[2021-01-09 20:09] VITALS: BP 178/105
== END 2021-01-09 20:09 | disposition home or self-care (01) ==
LOC: ER 17:30
DX: N39.0 Urinary tract infection, site not specified (principal); I10 Essential (primary) hypertension; G89.29 Other chronic pain; M19.90 Unspecified osteoarthritis, unspecified site; Z88.1 Allergy status to other antibiotic agents; Z88.0 Allergy status to penicillin; Z88.8 Allergy status to other drugs, medicaments and biological substances; Z79.899 Other long term (current) drug therapy; Z90.89 Acquired absence of other organs

== ENCOUNTER 2021-01-11 09:14 | Emergency (ER) | payer OTHER, MEDICARE ==
[~2021-01-11] VITALS: Ht 162.6 cm; Wt 68.0 kg
[~2021-01-11 09:14] MED LIST changes: +MONUROL3 GM PER TUBE
[2021-01-11 09:41] LABS: ABSOLUTE NEUTROPHILS 2.2 thou/uL (1.4-8.2); BASOPHILS 1.3 % (0.0-2.0); EOSINOPHILS 3.4 % (0.0-3.0); HEMOGLOBIN 12.6 gm/dL (12.0-15.0); LYMPHOCYTES 19.6 % (24.0-44.0); MCH 28.8 pg (26.0-34.0); MCHC 32.4 g/dL (28.0-37.0); MCV 88.8 fL (80.0-100.0); MONOCYTES 14.6 % (1.0-8.0); PLATELET COUNT 191 thou/uL (150-400); POLYS 61.1 % (36.0-66.0); RBC 4.39 mil/uL (4.20-5.00); RDW 19.3 % (10.5-14.5); WBC 3.6 thou/uL (4.0-11.0)
[2021-01-11 09:42] LABS: ANION GAP 8 mmol/L (7-16); BUN 14 mg/dL (7-18); CALCIUM 8.2 mg/dL (8.5-10.1); CHLORIDE 108 mmol/L (98-107); CO2 25 mmol/L (21-32); GLUCOSE 127 mg/dL (74-106); POTASSIUM 3.5 mmol/L (3.5-5.1); SODIUM 141 mmol/L (136-145)
[2021-01-11 09:52] LABS: ALBUMIN 3.1 g/dL (3.4-5.0); SGOT 16 U/L (15-37); SGPT 19 U/L (14-59); TOTAL BILIRUBIN 0.5 mg/dL (0.2-1.0); TOTAL PROTEIN 5.9 g/dL (6.4-8.2); TROPONIN-I <0.06 ng/mL (<0.06)
[2021-01-11 10:50] LABS: ANISOCYTOSIS 1+; PLATELET ESTIMATE NORMAL
[2021-01-11 11:01] LABS: URINE BILIRUBIN NEGATIVE (Negative); URINE BLOOD NEGATIVE (Negative); URINE CLARITY CLEAR; URINE COLOR YELLOW; URINE GLUCOSE-RANDOM* NEGATIVE (Negative); URINE KETONES TRACE (Negative); URINE LEUKOCYTES-REFLEX NEGATIVE (Negative); URINE NITRITE-REFLEX NEGATIVE (Negative); URINE PROTEIN (DIPSTICK) NEGATIVE (Negative); URINE UROBILINOGEN 0.2 E.U./dl (0.2-1.0)
[2021-01-11] MEDS ORDERED: TYLENOL325 M1 PO (12:32)
[2021-01-11] MEDS ORDERED: PYRIDIUM200 MG PO (12:32)
[2021-01-11 15:59] VITALS: BP 148/88
--- NOTE | 2021-01-12 12:28 | EKG ---
[place] [address] [address] [place] [address] ELECTROCARDIOGRAM REPORT Name: TERESA BIRCH Room #: DEP [facility]#: [id number] Admission: 01/11/21 Attend Phys: Discharge: 01/11/21 Date of : 35 Report #: [id number] [facility] ED Test Date: 2021-01-11 Test Time: 09:19:01 Pat Name: TERESA BIRCH Department: Room: Gender: F Director Of Claims: JCHAIALTA : 1935 Requested By: Nathan Ramirez Order Number: [id number] MD: Dangelo He Measurements Intervals [place] Rate: 84 P: 37 NE: 153 QRS: -52 QRSD: 98 T: -15 QT: 366 QTc: 433 Interpretive Statements Sinus rhythm Right ventricular conduction delay Leftward axis Borderline T abnormalities, diffuse leads Baseline wander in lead(s) V5 Compared to ECG 12/09/2019 21:51:03 Atrial premature complex(es) no longer present Electronically Signed On 01-12-2021 12:27:54 CDT by Dangelo He [email or web address] <ELECTRONICALLY SIGNED> By: Dangelo He MD, [facility] 01/12/21 1227 0919 0919 Dangelo He MD, [facility] /EPI
== END 2021-01-11 15:59 | disposition home or self-care (01) ==
LOC: ER 09:14
PROVIDERS: Emergency Medicine
DX: N39.0 Urinary tract infection, site not specified (principal); Z88.1 Allergy status to other antibiotic agents; Z88.5 Allergy status to narcotic agent; Z88.2 Allergy status to sulfonamides

== ENCOUNTER → 2021-02-18 | Outpatient (CLI) | payer OTHER, MEDICARE ==
[~2021-02-18] VITALS: Ht 162.6 cm; Wt 61.2 kg
[~2021-02-18] MED LIST changes: +ALENDRONATE SOD70 MG PO; +CRANBERRY400 MG PO; +D3-200050 MCG PO; +FAMOTIDINE 20 M20 MG PO; +GAS RELIEF80 MG PO; +LOPERAMIDE2 MG PO; +PYRIDIUM200 MG PO; +TYLENOL325 M1 PO
[2021-02-18 10:06] VITALS: BP 171/95
--- NOTE | 2021-02-18 10:31 | NUR ---
Pain Clinic Assessment: 1. History of Osteoarthritis: BACK History of Rheumatoid Arthritis: 2. Height: 5 ft. 4 in. 162.6 cm. Weight: 135.0 lb. oz. 61.236 kg. Patient's BMI: 23.2 3. Vital Signs: BP: 171/95 Pulse: 80 Resp: 16 Temp: 02 Sat: 98 ECG Mon: 4. Pain Intensity: 5 5. Fall Risk: Dizziness: N Needs help standing or walking: Y Fallen in the last 3 months: Y Fall risk comments: 6. Patient on Blood Thinner: None 7. History of Hypertension: Y 8. Opioid Therapy greater than 6 weeks: N Opiate Contract Signed: 9. Risk Assessment Tool Provided: 1 LOW RISK 10. Functional Assessment Tool: 11. Recreational Drug Use: Never Drug Type: Tobacco Use: Never Smoker Tobacco Type: Amount or Packs/day: How Many Years: Alcohol Use: No Frequency: Quant:
== END ==
LOC: PAIN 07:14
PROVIDERS: ATTEND Anesthesiology Pain Medicine
DX: G89.4 Chronic pain syndrome (principal); M25.562 Pain in left knee; R53.1 Weakness; E07.89 Other specified disorders of thyroid; I10 Essential (primary) hypertension; F32.9 Major depressive disorder, single episode, unspecified; Z79.899 Other long term (current) drug therapy; Z79.891 Long term (current) use of opiate analgesic; Z90.710 Acquired absence of both cervix and uterus; Z88.0 Allergy status to penicillin; Z88.1 Allergy status to other antibiotic agents; Z88.5 Allergy status to narcotic agent; Z88.2 Allergy status to sulfonamides; Z88.8 Allergy status to other drugs, medicaments and biological substances

== ENCOUNTER → 2021-03-07 | Outpatient (CLI) | payer OTHER, MEDICARE ==
[~2021-03-07] VITALS: Ht 162.6 cm; Wt 62.2 kg
[2021-03-07 10:01] VITALS: BP 124/88
--- NOTE | 2021-03-07 11:28 | NUR ---
Pain Clinic Assessment: 1. History of Osteoarthritis: BACK History of Rheumatoid Arthritis: 2. Height: 5 ft. 4 in. 162.6 cm. Weight: 137.2 lb. oz. 62.233 kg. Patient's BMI: 23.5 3. Vital Signs: BP: 124/88 Pulse: 87 Resp: 16 Temp: 02 Sat: 97 ECG Mon: 4. Pain Intensity: 5 5. Fall Risk: Dizziness: N Needs help standing or walking: Y Fallen in the last 3 months: N Fall risk comments: 6. Patient on Blood Thinner: None 7. History of Hypertension: Y 8. Opioid Therapy greater than 6 weeks: N Opiate Contract Signed: 9. Risk Assessment Tool Provided: 1 LOW RISK 10. Functional Assessment Tool: 11. Recreational Drug Use: Never Drug Type: Tobacco Use: Never Smoker Tobacco Type: Amount or Packs/day: How Many Years: Alcohol Use: No Frequency: Quant:
== END | disposition home or self-care (01) ==
LOC: PAIN 02-25 13:26
PROVIDERS: ATTEND Anesthesiology Pain Medicine
DX: M54.16 Radiculopathy, lumbar region (principal); G89.29 Other chronic pain; Z98.890 Other specified postprocedural states; Z79.899 Other long term (current) drug therapy; Z88.0 Allergy status to penicillin; Z88.2 Allergy status to sulfonamides; Z88.8 Allergy status to other drugs, medicaments and biological substances

== ENCOUNTER → 2021-06-03 | Outpatient (CLI) | payer OTHER, MEDICARE ==
[~2021-06-03] VITALS: Ht 162.6 cm; Wt 62.2 kg
[2021-06-03 09:41] VITALS: BP 131/80
--- NOTE | 2021-06-03 10:06 | NUR ---
Pain Clinic Assessment: 1. History of Osteoarthritis: BACK History of Rheumatoid Arthritis: Not Applicable 2. Height: 5 ft. 4 in. 162.6 cm. Weight: 137.2 lb. oz. 62.233 kg. Patient's BMI: 23.5 3. Vital Signs: BP: 131/80 Pulse: 86 Resp: 14 Temp: 02 Sat: 97 ECG Mon: 4. Pain Intensity: 5 5. Fall Risk: Dizziness: N Needs help standing or walking: N Fallen in the last 3 months: Y Fall risk comments: 6. Patient on Blood Thinner: None 7. History of Hypertension: Y 8. Opioid Therapy greater than 6 weeks: N Opiate Contract Signed: 9. Risk Assessment Tool Provided: 1 LOW RISK 10. Functional Assessment Tool: 11. Recreational Drug Use: Never Drug Type: Tobacco Use: Never Smoker Tobacco Type: Amount or Packs/day: How Many Years: Alcohol Use: No Frequency: Quant:
== END | disposition home or self-care (01) ==
LOC: PAIN 06-01 07:29
PROVIDERS: ATTEND Anesthesiology Pain Medicine
DX: M54.16 Radiculopathy, lumbar region (principal); M48.061 Spinal stenosis, lumbar region without neurogenic claudication; G89.29 Other chronic pain; I10 Essential (primary) hypertension; Z98.890 Other specified postprocedural states; Z79.899 Other long term (current) drug therapy; Z88.0 Allergy status to penicillin; Z88.2 Allergy status to sulfonamides

== ENCOUNTER → 2021-09-05 | Outpatient (CLI) | payer OTHER, MEDICARE ==
[~2021-09-05] VITALS: Ht 162.6 cm; Wt 63.8 kg
[2021-09-05 13:16] VITALS: BP 180/100
--- NOTE | 2021-09-05 13:45 | NUR ---
Pain Clinic Assessment: 1. History of Osteoarthritis: BACK History of Rheumatoid Arthritis: Not Applicable 2. Height: 5 ft. 4 in. 162.6 cm. Weight: 140.6 lb. oz. 63.776 kg. Patient's BMI: 24.1 3. Vital Signs: BP: 180/100 Pulse: 84 Resp: 14 Temp: 02 Sat: 97 ECG Mon: 4. Pain Intensity: 8-9 5. Fall Risk: Dizziness: Y Needs help standing or walking: N Fallen in the last 3 months: N Fall risk comments: 6. Patient on Blood Thinner: None 7. History of Hypertension: Y 8. Opioid Therapy greater than 6 weeks: N Opiate Contract Signed: 9. Risk Assessment Tool Provided: 1 LOW RISK 10. Functional Assessment Tool: 11. Recreational Drug Use: Never Drug Type: Tobacco Use: Never Smoker Tobacco Type: Amount or Packs/day: How Many Years: Alcohol Use: No Frequency: Quant:
== END | disposition home or self-care (01) ==
LOC: PAIN 10:19
PROVIDERS: ATTEND Anesthesiology Pain Medicine
DX: M54.16 Radiculopathy, lumbar region (principal); G89.29 Other chronic pain; M48.061 Spinal stenosis, lumbar region without neurogenic claudication; I10 Essential (primary) hypertension; Z98.890 Other specified postprocedural states; Z79.899 Other long term (current) drug therapy; Z88.0 Allergy status to penicillin; Z88.2 Allergy status to sulfonamides